=== PATIENT | male | born 2005 | race Caucasian/White ===

== ENCOUNTER 2024-05-03 17:08 | Emergency (ER) | payer OTHER ==
[2024-05-03] MEDS: Lidocaine 1% 10 ML MDV INJECT ONE (17:38)
[2024-05-03] MEDS: Take Home: Ondansetron 4 MG Tab.DIS, 5 Tab Pack PO ONE (17:40)
== END 2024-05-03 17:50 | disposition home or self-care (01) ==
LOC: VM.ED 17:08
DX: S01.511A Laceration without foreign body of lip, initial encounter (principal); F17.210 Nicotine dependence, cigarettes, uncomplicated; W22.8XXA Striking against or struck by other objects, initial encounter
CPT/HCPCS: 12011; 99282; 99283; J3490; Q0162